=== PATIENT | female | born 1935 | race Caucasian/White ===

== ENCOUNTER 2020-06-18 11:59 | Emergency (ER) | payer OTHER ==
[~2020-06-18] VITALS: Ht 160 cm; Wt 52.2 kg
[2020-06-18 12:24] LABS: ABSOLUTE NEUTROPHILS 3.4 thou/uL (1.4-8.2); BASOPHILS 0.9 % (0.0-2.0); EOSINOPHILS 1.3 % (0.0-3.0); HEMATOCRIT 41.3 % (37.0-47.0); HEMOGLOBIN 13.3 gm/dL (12.0-15.0); MCH 28.4 pg (26.0-34.0); MCHC 32.3 g/dL (28.0-37.0); MCV 88.1 fL (80.0-100.0); MONOCYTES 6.7 % (1.0-8.0); PLATELET COUNT 195 thou/uL (150-400); POLYS 64.1 % (36.0-66.0); RBC 4.68 mil/uL (4.20-5.00); RDW 14.4 % (10.5-14.5); WBC 5.4 thou/uL (4.0-11.0)
[2020-06-18 12:30] LABS: URINE BILIRUBIN NEGATIVE (Negative); URINE BLOOD NEGATIVE (Negative); URINE CLARITY CLEAR; URINE COLOR YELLOW; URINE GLUCOSE-RANDOM* NEGATIVE (Negative); URINE KETONES NEGATIVE (Negative); URINE LEUKOCYTES-REFLEX NEGATIVE (Negative); URINE NITRITE-REFLEX NEGATIVE (Negative); URINE PROTEIN (DIPSTICK) TRACE (Negative); URINE SPECIFIC GRAVITY 1.025 (1.005-1.035); URINE UROBILINOGEN 0.2 E.U./dl (0.2-1.0)
[2020-06-18 12:31] LABS: CALCIUM 9.9 mg/dL (8.5-10.1); CREATININE 0.9 mg/dL (0.6-1.0); POTASSIUM 3.9 mmol/L (3.5-5.1)
[2020-06-18] MEDS ORDERED: DIVALPROEX SOD125 MG PO (12:44)
[2020-06-18] MEDS ORDERED: EXELON1 EAC1 TRANSDERM (12:44)
[2020-06-18] MEDS ORDERED: LUVOX 50MG TABL50 M1 PO (12:45)
[2020-06-18] MEDS ORDERED: SEROQUEL 50 MG50 M1 PO (12:45)
[2020-06-18] MEDS ORDERED: DESYREL150 MG PO (12:45)
[2020-06-18] MEDS ORDERED: VITAMIN D310 MC2 PO (12:46)
[2020-06-18] MEDS ORDERED: ATIVAN1 M1 TOP (12:47)
[2020-06-18 22:45] VITALS: BP 123/60
== END 2020-06-18 22:45 | disposition home or self-care (01) ==
LOC: ER 11:59
PROVIDERS: Nurse Practitioner
DX: R46.89 Other symptoms and signs involving appearance and behavior (principal)

== ENCOUNTER 2020-07-04 09:28 | Emergency (ER) | payer OTHER ==
[~2020-07-04] VITALS: Ht 172.7 cm; Wt 54.4 kg
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
[~2020-07-04 09:28] MED LIST: ATIVAN1 M1 TOP; DESYREL150 MG PO; DIVALPROEX SOD125 MG PO; EXELON1 EAC1 TRANSDERM; LUVOX 50MG TABL50 M1 PO; SEROQUEL 50 MG50 M1 PO; VITAMIN D310 MC2 PO
[2020-07-04 10:12] LABS: ABSOLUTE NEUTROPHILS 5.8 thou/uL (1.4-8.2); BASOPHILS 0.3 % (0.0-2.0); EOSINOPHILS 0.4 % (0.0-3.0); HEMATOCRIT 40.3 % (37.0-47.0); HEMOGLOBIN 12.7 gm/dL (12.0-15.0); MCH 27.6 pg (26.0-34.0); MCHC 31.5 g/dL (28.0-37.0); MCV 87.4 fL (80.0-100.0); MONOCYTES 5.7 % (1.0-8.0); POLYS 77.6 % (36.0-66.0); RBC 4.61 mil/uL (4.20-5.00); RDW 14.5 % (10.5-14.5); WBC 7.4 thou/uL (4.0-11.0)
[2020-07-04 10:20] LABS: CALCIUM 9.7 mg/dL (8.5-10.1); CREATININE 0.9 mg/dL (0.6-1.0)
[2020-07-04 10:20] LABS: URINE BILIRUBIN NEGATIVE (Negative); URINE BLOOD NEGATIVE (Negative); URINE CLARITY SL CLOUDY; URINE COLOR YELLOW; URINE GLUCOSE-RANDOM* NEGATIVE (Negative); URINE KETONES NEGATIVE (Negative); URINE LEUKOCYTES-REFLEX NEGATIVE (Negative); URINE NITRITE-REFLEX NEGATIVE (Negative); URINE PROTEIN (DIPSTICK) 1+ (Negative)
[2020-07-04 10:25] LABS: ALBUMIN 3.1 g/dL (3.4-5.0); POTASSIUM 4.7 mmol/L (3.5-5.1); TOTAL BILIRUBIN 0.7 mg/dL (0.2-1.0); TOTAL PROTEIN 7.1 g/dL (6.4-8.2)
[2020-07-04 10:41] LABS: AMORPHOUS URATES Few /LPF (None Seen); BACTERIA-REFLEX 1-9 Few /HPF (None Seen); CASTS None Seen /LPF (None Seen); SQUAMOUS 0-3 Few /LPF (0-3); URINE RBC None Seen /HPF (NONE SEEN); URINE WBC-REFLEX 0-5 Rare /HPF (0-5)
[2020-07-04 10:56] LABS: PLATELET COUNT 160 thou/uL (150-400)
[2020-07-04] MEDS ORDERED: MACROBID 100 M100 M1 PO (12:38)
[2020-07-04 15:12] VITALS: BP 114/51
--- NOTE | 2020-07-05 08:43 | EKG ---
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 07/05/20 0842 Valerio Rodriguez MD, FAC /EPI
== END 2020-07-04 15:13 ==
LOC: ER 09:28
PROVIDERS: Emergency Medicine
DX: G30.9 Alzheimer's disease, unspecified (principal); Z20.822 Contact with and (suspected) exposure to COVID-19; F02.81 Dementia in other diseases classified elsewhere, unspecified severity, with behavioral disturbance; Z79.899 Other long term (current) drug therapy

== ENCOUNTER 2020-07-20 17:41 | Emergency (ER) | payer OTHER ==
[~2020-07-20] VITALS: Ht 172.7 cm; Wt 54.4 kg
[~2020-07-20 17:41] MED LIST changes: +MACROBID 100 M100 M1 PO
[2020-07-20 17:43] VITALS: BP 141/73
== END 2020-07-20 19:16 | disposition admitted as inpatient to this hospital (09) ==
LOC: ER 17:41
DX: F03.91 Unspecified dementia, unspecified severity, with behavioral disturbance (principal); Z20.822 Contact with and (suspected) exposure to COVID-19; Z79.899 Other long term (current) drug therapy

== ENCOUNTER 2020-07-20 19:16 | Inpatient (IN) | payer OTHER ==
[~2020-07-20] VITALS: Ht 167.6 cm; Wt 49.5 kg
--- NOTE | 2020-07-21 03:17 | NUR ---
PT WAS ADMITTED INTO THE UNIT TO RM 527 UNDER THE CARE OF DR. ANNA. SHE IS SLIIGHTLY ALERT AND SLEEPY.ADMITTING DR. IS DR. GRAF. ONCALL SENIOR ADMINISTRATIVE ASSISTANT AMY ORDERED A CONSULT WITH DR. MERCHANT . PT IS SLEEPING AND IS UNABLE TO GIVE ANY HISTORY AT THIS TIME.ON ASSESSMENT LUNGS ARE CLEAR BS ACTIVE X 4 QUAD. ABDMEN IS FLAT. UNABLE TO GET HOLD OF HER NURSING FACILTY FOR MORE DETAILS.PT AMBULATES AND CONTINET OF BLADDER AT THIS TIME.SHE DENIES PAINS AND ANY DISCOMFORT. BED IS LOW AND LOCK, ALARM IN PLACE, SIDE RAILS ARE UP. PT HAS A NONE SKID SOCKS ON. REFUSES TO TAKE OF HER CLOTHES AT THIS TIME. Q12 MINIUES CHECK IS ON GOING. VSS.
[2020-07-21 06:19] LABS: CHOLESTEROL 212 mg/dL (<200); HDL CHOLESTEROL 70 mg/dL (>40); LDL CHOLESTEROL 124 mg/dL (<100); TRIGLYCERIDE 91 mg/dL (<150); VLDL 18 mg/dL (<40)
--- NOTE | 2020-07-21 06:30 | NUR ---
PT ADMITTED FOR ALTER MENTAL STATUS. SHE SLEPT ALL NIGHT AND NO CONCERN NOTED THIS SHIFT. CALL TO DAUGHTER DPRAPHAEL TWICE THIS AM WAS NOT RESPONDED. MESSAGES LEFT FOR CALL BACK. WILL NOTIFY ONCOMING NURSE TO FOLLOW UP WITH MICHAEL FOR CONSENTS AND SIGNATURES. PT AT THE DINING AREA SITTING IN RECLINER WITH ALARM,NON SKID SOCKS, CHAIR IS LOCKED, AND ARM BANDS FOR FALL PRECAUTION AND NAME TAG INI PLACE. CONTINUE CARE AND MONITOR.
[2020-07-21 06:41] LABS: SERUM ASSESSMENT Clear
[2020-07-21 09:07] VITALS: BP 116/48
[2020-07-21 12:47] VITALS: BP 116/48
--- NOTE | 2020-07-21 13:23 | NUR ---
PATIENT'S DAUGHTER- DPOA CALLED, AND CONSENT TO TREAT, AND FALL CONSENT OBTAINED, SECOND NURSE PRESENT WITNESSED PHONE CONSENT. PICTURE TAKEN, PLACED IN CHART. PATIENT IS ALERT, FORGETFUL, PLEASANTLY CONFUSED. PATIENT INITIAALY REFUSED MORNING MEDICATION, GOT IRRITABLE, SUSPICIOUS, DELUSIONAL. 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 SHE BECAME HYPERVERBAL, RAMBLING, AND DIFFICULT TO CONVINCE TO TAKE MORNING MEDS. MEDICATION CRUSHED PUT IN ICECREAM, PATIENT TOOK THE MEDS LATER IN ICECREAM. PATIENT WANDERS, EXIT SEEKING, BANGING ON THE DOOR, SHE IS HIGH ELOPEMENT RISK, REDIRECTABLE THOUGH. PATIENT IS NOT ABLE TO APPROPRIATELY RESPOND TO ASSESSMENT QUESTIONS DUE TO COGNITIVE IMPAIRMENT. NO SIGN OF ACUTE DISTRESS NOTED AT THIS TIME, WILL CONTINUE TO REDIRECT, AND MONITOR FOR SAFETY.
[2020-07-21 20:07] VITALS: BP 106/51
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
[2020-07-22 00:06] LABS: GLYCOHEMOGLOBIN (HGB A1C) 5.9 % (4.8-5.6)
[2020-07-22 08:49] VITALS: BP 113/63
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
[2020-07-22 19:35] VITALS: BP 119/103
--- NOTE | 2020-07-22 21:50 | NUR ---
ASSUMED CARE OF PATIENT AT 1900, PATIENT WANDERING WIGGINS AT THAT TIME,STEADY GAIT, CONFUSED, ORIENTED TO SELF ONLY. SOMETIMES WANDERING INTO OTHER PATIENT'S ROOMS AND PILFERING ITEMS. PATIENT HAS BEEN REDIRECTABLE THIS EVENING. TOOK HS MEDICATIONS CRUSHED IN ICE CREAM WITHOUT DIFFICULTY AND FINISHED ICE CREAM CUP. CURRENTLY LYING IN BED RESTING QUIETLY. WILL CONTINUE TO MONITOR.
[2020-07-23 16:18] VITALS: BP 119/103
--- NOTE | 2020-07-23 16:28 | NUR ---
Assumed pt care at 0700. pt was oriented to self. Assessments completed, vss. pt was unco-operative with care and assessments. pt took meds crushed in ice cream. Denies si/hi, denies pain. No sign of acute distress noted upon assessments. meds administered as ordered. Pt had one occurance of large BM this shift. Pt was incontinent x2. pt refused to participate in groups. AMbulates self. PT WANDER unit hallways. upon assessments, four round algaaciq ECZEMA was noted on pt back. Dr Alfaro notified. Dr Alfaro assessed pt. Clotrimazole ordered for pt. AT this time pt is sleeping in her room. will continue to monitor.
[2020-07-23 19:52] VITALS: BP 144/71
[2020-07-24 07:33] VITALS: BP 149/69
[2020-07-24 10:21] VITALS: BP 149/69
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
[2020-07-24 19:30] VITALS: BP 149/69
--- NOTE | 2020-07-25 06:34 | NUR ---
Assumed care on 07/24 @ 19:15, seated in the common room in a kanika chair until about 0200 when she was transferred to bed. Ate evening snack, took meds crushed in ice cream, except the Divalproex Sodium, spit out. New order obtained for Depakote Sprinkles 500mg BID which will begin on 07/25/20 @ 0900. Slept in bed with bed in low position, bed alarm set throughout the NOC.
[2020-07-25 09:06] VITALS: BP 159/78
--- NOTE | 2020-07-25 13:23 | NUR ---
Received awake on day room. Due medications given as prescribed, crushed and mixed with apple sauce; able to swallow meds w/o difficulty. On room air. Vital signs stable. On regular diet- tolerating well, no nausea, no vomiting and no abdominal pain noted; encouraged and assisted in eating and drinking. No IV noted. No complains and signs of chest pain, crushing sensation and heaviness. Assisted in ADLs. Falls bundle in place. With on and off incontinence; checked frequently and changed as needed; frequent toileting offered. No verbalizations of HI/SI. No tactile, visual and auditory hallucinations noted. No complains of pain made during assessment. To continue monitoring patient.
[2020-07-25 19:11] VITALS: BP 108/63
--- NOTE | 2020-07-26 05:09 | NUR ---
ASSUMED CARE OF PATIENT AT 1900 ON 07/25. PATIENT CALM SITTING IN CHAIR IN DAY ROOM. NO S/S OF DISTRESS OR DISCOMFORT. DISORIENTED X 4. NO ASSAULTIVE OR AGGRESSIVE BEHAVIORS. TOOK MEDS WHOLE IN GEORGIAN ICE DESSERT CUP WITHOUT DIFFICULTY. CONTINENT OF BLADDER, TOILETED WITH STANDBY ASSIST. HAS BEEN LYING IN BED SINCE APPROX 2200 LASTNIGHT. WILL CONTINUE TO MONITOR.
[2020-07-26 08:46] VITALS: BP 142/59
--- NOTE | 2020-07-26 08:52 | NUR ---
SW faxed updates to [facility] on 07/25/20. SW team will remain available.
--- NOTE | 2020-07-26 13:05 | NUR ---
TANYA and Dr. Potts met with Brianna via telephone to discuss pt's care. Brianna inquired about an order to crush patient's meds being sent to [facility]. She has concerns about patient getting her medication as prescribed when pt refuses. Dr. Potts provided education about the stages of dementia and the scale he uses. Brianna expressed an understanding. Brianna was informed TANYA Morataya will call her on Sunday with an update. SW team will remain available.
--- NOTE | 2020-07-26 13:36 | NUR ---
PT ALERT TO SELF ONLY. PT VERY CONFUSED TODAY. PT ALSO WONDERING INTO OTHER PT ROOMS TODAY. PT TOLERATES MEDS AND MEALS. PT WOULD NOT ANSWER ANY ASSESSMENT QUESTIONS, BUT DID STATE SHE WAS SEEING HER DAGHTER IN HER ROOM SITTING ON THE FLOOR. SPOKE WITH PT DAUGHTER TO UDATE ON CARE. WILL CONTINUE TO MONITOR.
[2020-07-26 20:33] VITALS: BP 143/50
--- NOTE | 2020-07-27 02:08 | NUR ---
ASSUMED PATIENT CARE AT 1900. PATIENT WANDERING THE WIGGINS, TEARFUL AND CONFUSED. GIVEN MEDICATIONS CRUSHED IN ICE CREAM, GIVEN PRN TRAZODONE FOR SLEEP. TOILETED PATIENT AND HELPED TO BED. PATIENT CURRENTLY LYING IN BED APPEARING TO BE ASLEEP. REMAINS ON FALL PRECAUTIONS, WILL CONTINUE TO MONITOR.
[2020-07-27 09:38] VITALS: BP 146/69
--- NOTE | 2020-07-27 10:25 | NUR ---
RT Progress Note- Mallorie's participation in the milieu and recreation therapy groups has been extremely limited since her admission to unit. Mallorie often appears distressed (crying, looking for her parents) and is difficult to console and redirect to activity at hand. She wanders often. At this time Mallorie benefits best from 1;1 interaction and RT staff will offer her leisure opportunities throughout the day.
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
[2020-07-27 19:30] VITALS: BP 1114/65
--- NOTE | 2020-07-28 00:54 | NUR ---
PATIENT SITTING IN DAY AREA, CALM, NO S/S OF DISTRESS/DISCOMFORT. TOOK MEDS CRUSHED IN ICE CREAM WITHOUT DIFFICULTY. TRAZADONE FOR SLEEP. CURRENTLY LYING IN BED. WILL CONTINUE TO MONITOR.
[2020-07-28 10:40] VITALS: BP 141/82
--- NOTE | 2020-07-28 15:03 | NUR ---
PT ALERT TO SELF ONLY, FLAT AFFECT VSS, PT STATES SHE SEES LITTLE CHILDREN RUNNING AROUND IN THE DAY ROOM. PT DENIES PAIN/SOA. PT TOLERATES MEDS AND MEALS. WILL CONTINUE TO MONITOR.
--- NOTE | 2020-07-28 16:52 | NUR ---
SW was able to speak with the DON at [facility] to set up discharge. The DON informed that all new orders need to have the doctors name and signature for the pharmacy to accept. The pharmacy used is [facility] . D/C is set for 07/29/2020 @ 11am. Pt will be transported by [facility]
[2020-07-28 20:13] VITALS: BP 108/59
--- NOTE | 2020-07-29 04:28 | NUR ---
Assumed care on 07/28/20 @ 19:15, ambulating through the day room. A&Ox1 with confusion noted. Takes meds crushed in ice cream or pudding. Pleasant with cares. Has a walker, but needs to be encoraged with use it to ambulate. Trazadone 50mg provided for insomnia. Would not stay in bed, seated in a kanika chair in the day room. Will continue to monitor for safety and comfort as per unit protocol.
[2020-07-29 08:43] VITALS: BP 122/64
[2020-07-29] MEDS ORDERED: DEPAKOTE SPRIN125 MG PO (10:26)
[2020-07-29] MEDS ORDERED: TRAZODONE HCL50 MG PO (10:28)
[2020-07-29] MEDS ORDERED: ZYPREXA 5 MG TAB5 M1 PO (10:30)
[2020-07-29] MEDS ORDERED: OLANZAPINE2.5 MG PO (10:30)
[2020-07-29] MEDS ORDERED: CLOTRIMAZOLE-BE15 GM TOP (10:33)
[2020-07-29] MEDS ORDERED: FOLIC ACID1 MG PO (10:34)
[2020-07-29] MEDS ORDERED: VITAMIN B-6100 MG PO (10:35)
[2020-07-29] MEDS ORDERED: VITAMIN B-1100 M2 PO (10:35)
[2020-07-29] MEDS ORDERED: VITAMIN D21250 MCG PO (10:36)
--- NOTE | 2020-07-29 11:46 | NUR ---
Alert and orientated to name only. Knows she is in hospital but can't state name. Denies SI/HI. Ambulates with slightly unsteady gait, placed in gerichair. Breath sounds clear. Reg HR auscultated. Color pink with brisk capillary refill and palpable peripheral pulses. Dark yellow urine per toilet with smear of stool on brief. Active bowel sounds over soft, flat abdomen. Circular lesions on back, ointment applied. Spoke with MICHAEL Dumont, agrees with transfer. Attempted to call report multiple times to [facility]. Spoke with Haim Pino at 1145 and gave report. Discharged per van in wheelchair at 1125.
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
== END 2020-07-29 11:25 | DRG 57 ==
LOC: SBH 19:16
PROVIDERS: ADMIT Psychiatry & Neurology Psychiatry; ATTEND Psychiatry & Neurology Psychiatry
DX: G30.9 Alzheimer's disease, unspecified (principal); F01.51 Vascular dementia, unspecified severity, with behavioral disturbance; F02.81 Dementia in other diseases classified elsewhere, unspecified severity, with behavioral disturbance; E44.0 Moderate protein-calorie malnutrition; Z68.1 Body mass index [BMI] 19.9 or less, adult; G47.00 Insomnia, unspecified; F41.9 Anxiety disorder, unspecified; E53.8 Deficiency of other specified B group vitamins; R21 Rash and other nonspecific skin eruption; F29 Unspecified psychosis not due to a substance or known physiological condition; Z79.899 Other long term (current) drug therapy
CPT/HCPCS: 10880